=== PATIENT | female | born 1990 | race Caucasian/White ===

== ENCOUNTER 2024-11-06 10:36 | Emergency (ER) | payer BC ==
[2024-11-06 11:01] VITALS: TEMP 98.6
[2024-11-06] MEDS: ACETAMINOPHEN TAB 500 MG TAB PO STA (11:23)
[2024-11-06] MEDS: SODIUM CHLORIDE 0.9% 2,000 ML IV ONE (11:24)
[2024-11-06 11:33] LABS: Basophils % (A) 0 %; Eosinophils # (A) 0.1 k/uL (0-0.7); Eosinophils % (A) 1 %; HCT 35.1 % (34.0-46.0); HGB 12.5 gm/dL (11.4-16.0); Lymphocytes # (A) 0.6 k/uL (1.0-4.8); Lymphocytes % (A) 7 %; MCH 31.2 pg (25.0-35.0); MCHC 35.6 g/dL (31.0-37.0); MCV 87.5 fL (80.0-100.0); Mean Platelet Volume 7.8; Monocytes # (A) 0.5 k/uL (0-1.0); Monocytes % (A) 6 %; Neutrophils # (A) 7.1 k/uL (1.3-7.7); Neutrophils % (A) 83 %; Platelet Count 282 k/uL (150-450); RBC 4.01 m/uL (3.80-5.40); WBC 8.6 k/uL (3.8-10.6)
[2024-11-06 11:41] LABS: Appearance,Urine Clear (Clear); Bilirubin,Urine Negative (Negative); Blood,Urine Negative (Negative); Color,Urine Yellow; Glucose,Urine (UA) Negative (Negative); Ketones,Urine 3+ (Negative); Leukocyte Esterase,Urine Negative (Negative); Nitrite,Urine Negative (Negative); Protein,Urine Trace (Negative); Urobilinogen,Urine <2.0 mg/dL (<2.0)
[2024-11-06 11:44] LABS: African American GFR (CKD) >90 (>60 ml/min/1.73 sqM); Anion Gap 10 mmol/L; Blood Urea Nitrogen 3 mg/dL (7-17); Calcium 9.3 mg/dL (8.4-10.2); Carbon Dioxide 18 mmol/L (22-30); Chloride 104 mmol/L (98-107); Glucose 86 mg/dL (74-99); Non-African American GFR(CKD) >90 (>60 ml/min/1.73 sqM); Potassium 3.9 mmol/L (3.5-5.1); Sodium 132 mmol/L (137-145)
--- NOTE | 2024-11-06 12:22 | ED ---
Nausea/Vomiting/Diarrhea HPI - General Chief complaint: Nausea/Vomiting/Diarrhea Stated complaint: 31wks preg vomiting sore throat Time Seen by Provider: 11/06/24 10:55 Source: patient, RN notes reviewed Mode of arrival: ambulatory Limitations: no limitations - History of Present Illness Initial comments: 34-year-old female presents emergency department complaining nausea vomiting body aches fever. Patient states symptoms started last few days. Patient states that she has had some people at home sick. Patient is concerned that she may be dehydrated as she is 31 weeks . Patient denies any vaginal bleeding or abdominal pain she states she feels baby movement. - Related Data Previous Rx's Medication Instructions Recorded Ondansetron Odt [Zofran Odt] 4 mg PO Q8HR PRN #10 tab 11/06/24 Allergies Allergy/AdvReac Type Severity Reaction Status Date / Time sulfamethoxazole Allergy Unknown Verified 11/06/24 10:54 [From Bactrim] trimethoprim [From Bactrim] Allergy Unknown Verified 11/06/24 10:54 Review of Systems ROS Statement: Those systems with pertinent positive or pertinent negative responses have been documented in the HPI. ROS Other: All systems not noted in ROS Statement are negative. Past Medical History Past Surgical History: Section, Cholecystectomy, Tonsillectomy Additional Past Surgical History / Comment(s): ERCP. L thumb. hemorrhoidectomy Past Psychological History: Depression Smoking Status: Never smoker Past Alcohol Use History: None Reported Past Drug Use History: None Reported General Exam Limitations: no limitations General appearance: alert, in no apparent distress Head exam: Present: atraumatic, normocephalic, normal inspection Eye exam: Present: normal appearance, PERRL, EOMI. Absent: scleral icterus, conjunctival injection, periorbital swelling ENT exam: Present: normal exam, normal oropharynx, mucous membranes moist Neck exam: Present: normal inspection, full ROM. Absent: tenderness, meningismu s, lymphadenopathy Respiratory exam: Present: normal lung sounds bilaterally. Absent: respiratory distress, wheezes, rales, rhonchi, stridor Cardiovascular Exam: Present: normal rhythm, tachycardia, normal heart sounds. Absent: systolic murmur, diastolic murmur, rubs, gallop, clicks GI/Abdominal exam: Present: soft, normal bowel sounds. Absent: distended, tenderness, guarding, rebound, rigid Course Vital Signs 11/06/24 11/06/24 10:54 12:49 Temperature 98.6 F Pulse Rate 116 H 95 Respiratory 20 16 Rate Blood Pressure 131/81 99/60 O2 Sat by Pulse 98 97 Oximetry Medical Decision Making - Medical Decision Making Was pt. sent in by a medical professional or institution (DAREK Sharma, PINBALL MACHINE REPAIRER, urgent care, hospital, or retirement...) When possible be specific @ -No Did you speak to anyone other than the patient for history (EMS, parent, family, police, friend...)? What history was obtained from this source @ -No Did you review nursing and triage notes (agree or disagree)? Why? @ -I reviewed and agree with nursing and triage notes Were old charts reviewed (outside hosp., previous admission, EMS record, old EKG, old radiological studies, urgent care reports/EKG's, retirement records)? Report findings @ -No old charts were reviewed Differential Diagnosis (chest pain, altered mental status, abdominal pain women, abdominal pain men, vaginal bleeding, weakness, fever, dyspnea, syncope, headach e, dizziness, GI bleed, back pain, seizure, CVA, palpatations, mental health, musculoskeletal)? @ -Differential Fever: Pneumonia, viral URI, endocarditis, myocarditis, pericarditis, otitis, sinusitis , peritonsillar Abscess, retropharyngeal Abscess, epiglottitis, peritonitis, appendicitis, Roseann cystitis, diverticulitis, hepatitis, colitis, UTI, PID, TOA, pyelonephritis, prostatitis, epididymitis, meningitis, encephalitis, pulmonary embolism, CVA, thyroid storm, pancreatitis, adrenal crisis, cavernous sinus thrombosis, this is not meant to be an all-inclusive list. EKG interpreted by me (3pts min.). @None X-rays interpreted by me (1pt min.). @ -None done CT interpreted by me (1pt min.). @ -None done U/S interpreted by me (1pt. min.). @ -None done What testing was considered but not performed or refused? (CT, X-rays, U/S, labs)? Why? @ -None What meds were considered but not given or refused? Why? @ -None Did you discuss the management of the patient with other professionals (pro baer i.e. DAREK Sharma, PINBALL MACHINE REPAIRER, lab, RT, psych nurse, social worker clinical, truck mechanic, teacher, gift officer, case repairer)? Give summary @ -No Was smoking cessation discussed for >3mins.? @ -No Was critical care preformed (if so, how long)? @ -No Were there social determinants of health that impacted care today? How? (Homelessness, low income, unemployed, alcoholism, drug addiction, transportation, low edu. Level, literacy, decrease access to med. care, detention, rehab)? @ -No Was there de-escalation of care discussed even if they declined (Discuss DNR or withdrawal of care, Hospice)? DNR status @ -No What co-morbidities impacted this encounter? (DM, HTN, Smoking, COPD, CAD, Cancer, CVA, ARF, Chemo, Hep., AIDS, mental health diagnosis, sleep apnea, morbid obesity)? @ -None Was patient admitted / discharged? Hospital course, mention meds given and route, prescriptions, significant lab abnormalities, going to OR and other pertinent info. @ -Charge patient is well-hydrated, patient is influenza A positive. Patient discharged in stable condition return parens discussed. Undiagnosed new problem with uncertain prognosis? @ -No Drug Therapy requiring intensive monitoring for toxicity (Heparin, Nitro, Insul in, Cardizem)? @ -No Were any procedures done? @ -No Diagnosis/symptom? @ -Influenza A Acute, or Chronic, or Acute on Chronic? @ -Acute Uncomplicated (without systemic symptoms) or Complicated (systemic symptoms)? @ -Uncomplicated Side effects of treatment? @ -No Exacerbation, Progression, or Severe Exacerbation? @ -No Poses a threat to life or bodily function? How? (Chest pain, [place], [place], pneumonia, PE, COPD, DKA, ARF, appy, cholecystitis, CVA, Diverticulitis, Homicidal, Suicidal, threat to staff... and all critical care pts) @ -No - Lab Data Result diagrams: 11/06/24 11:27 11/06/24 11:27 Lab Results 11/06/24 11/06/24 11/06/24 Range/Units 11: 11: 11:27 WBC 8.6 (3.8-10.6) k/uL RBC 4.01 (3.80-5.40) m/uL Hgb 12.5 (11.4-16.0) gm/dL Hct 35.1 (34.0-46.0) % MCV 87.5 (80.0-100.0) fL MCH 31.2 (25.0-35.0) pg MCHC 35.6 (31.0-37.0) g/dL RDW 15.0 (11.5-15.5) % Plt Count 282 (150-450) k/uL MPV 7.8 Neutrophils % 83 % Lymphocytes % 7 % Monocytes % 6 % Eosinophils % 1 % Basophils % 0 % Neutrophils # 7.1 (1.3-7.7) k/uL Lymphocytes # 0.6 L (1.0-4.8) k/uL Monocytes # 0.5 (0-1.0) k/uL Eosinophils # 0.1 (0-0.7) k/uL Basophils # 0.0 (0-0.2) k/uL Sodium 132 L (137-145) mmol/L Potassium 3.9 (3.5-5.1) mmol/L Chloride 104 (98-107) mmol/L Carbon Dioxide 18 L (22-30) mmol/L Anion Gap 10 mmol/L BUN 3 L (7-17) mg/dL Creatinine 0.42 L (0.52-1.04) mg/dL Est GFR (CKD-EPI)AfAm >90 (>60 ml/min/1.73 sqM) Est GFR (CKD-EPI)NonAf >90 (>60 ml/min/1.73 sqM) Glucose 86 (74-99) mg/dL Calcium 9.3 (8.4-10.2) mg/dL Urine Color Yellow Urine Appearance Clear (Clear) Urine pH 6.0 (5.0-8.0) Ur Specific Jackson 1.020 (1.001-1.035) Urine Protein Trace H (Negative) Urine Glucose (UA) Negative (Negative) Urine Ketones 3+ H (Negative) Urine Blood Negative (Negative) Urine Nitrite Negative (Negative) Urine Bilirubin Negative (Negative) Urine Urobilinogen <2.0 (<2.0) mg/dL Ur Leukocyte Esterase Negative (Negative) Influenza Type A (PCR) (Not Detectd) Influenza Type B (PCR) (Not Detectd) RSV (PCR) (Not Detectd) SARS-CoV-2 (PCR) (Not Detectd) 11/06/24 Range/Units 11:27 WBC (3.8-10.6) k/uL RBC (3.80-5.40) m/uL Hgb (11.4-16.0) gm/dL Hct (34.0-46.0) % MCV (80.0-100.0) fL MCH (25.0-35.0) pg MCHC (31.0-37.0) g/dL RDW (11.5-15.5) % Plt Count (150-450) k/uL MPV Neutrophils % % Lymphocytes % % Monocytes % % Eosinophils % % Basophils % % Neutrophils # (1.3-7.7) k/uL Lymphocytes # (1.0-4.8) k/uL Monocytes # (0-1.0) k/uL Eosinophils # (0-0.7) k/uL Basophils # (0-0.2) k/uL Sodium (137-145) mmol/L Potassium (3.5-5.1) mmol/L Chloride (98-107) mmol/L Carbon Dioxide (22-30) mmol/L Anion Gap mmol/L BUN (7-17) mg/dL Creatinine (0.52-1.04) mg/dL Est GFR (CKD-EPI)AfAm (>60 ml/min/1.73 sqM) Est GFR (CKD-EPI)NonAf (>60 ml/min/1.73 sqM) Glucose (74-99) mg/dL Calcium (8.4-10.2) mg/dL Urine Color Urine Appearance (Clear) Urine pH (5.0-8.0) Ur Specific Jackson (1.001-1.035) Urine Protein (Negative) Urine Glucose (UA) (Negative) Urine Ketones (Negative) Urine Blood (Negative) Urine Nitrite (Negative) Urine Bilirubin (Negative) Urine Urobilinogen (<2.0) mg/dL Ur Leukocyte Esterase (Negative) Influenza Type A (PCR) Detected A (Not Detectd) Influenza Type B (PCR) Not Detected (Not Detectd) RSV (PCR) Not Detected (Not Detectd) SARS-CoV-2 (PCR) Not Detected (Not Detectd) Disposition Clinical Impression: Influenza A, Nausea & vomiting Disposition: HOME SELF-CARE Condition: Stable Instructions (If sedation given, give patient instructions): Influenza (ED) Additional Instructions: Please return to the Emergency Department if symptoms worsen or any other concerns. Prescriptions: Ondansetron Odt [Zofran Odt] 4 mg PO Q8HR PRN #10 tab PRN Reason: Nausea Is patient prescribed a controlled substance at d/c from ED?: No Referrals: Conrad Chacko MD [Primary Care Provider] - 1-2 days Time of Disposition: 12:22
[2024-11-06 12:50] VITALS: BP 99/60; PULSE 95; RESP 16
== END 2024-11-06 12:50 | disposition home or self-care (01) ==
LOC: EC 10:36
DX: O21.2 Late vomiting of pregnancy (principal); O99.513 Diseases of the respiratory system complicating pregnancy, third trimester; J10.1 Influenza due to other identified influenza virus with other respiratory manifestations; Z88.2 Allergy status to sulfonamides; Z3A.31 31 weeks gestation of pregnancy
CPT/HCPCS: 36415; 80048; 81003; 85025; 87636; 96360; 99284

== ENCOUNTER 2024-12-20 10:00 | Inpatient (IN) | payer BC ==
[2024-12-20 17:02] LABS: Basophils % (A) 0 %; Eosinophils % (A) 0 %; HCT 37.8 % (34.0-46.0); HGB 12.1 gm/dL (11.4-16.0); Lymphocytes # (A) 1.4 k/uL (1.0-4.8); Lymphocytes % (A) 19 %; MCH 28.1 pg (25.0-35.0); MCV 87.6 fL (80.0-100.0); Mean Platelet Volume 9.1; Monocytes # (A) 0.4 k/uL (0-1.0); Monocytes % (A) 6 %; Neutrophils # (A) 5.3 k/uL (1.3-7.7); Neutrophils % (A) 72 %; Platelet Count 335 k/uL (150-450); RBC 4.31 m/uL (3.80-5.40); RDW 13.7 % (11.5-15.5); WBC 7.3 k/uL (3.8-10.6)
[2024-12-20] MEDS ORDERED: LABETALOL 5 MG/ML VIAL MDV IVP PRN (17:05)
[2024-12-20 17:15] LABS: ALT 27 U/L (4-34); AST 33 U/L (14-36); African American GFR (CKD) >90 (>60 ml/min/1.73 sqM); Blood Urea Nitrogen 10 mg/dL (7-17); LDH 210 U/L (120-246); Non-African American GFR(CKD) >90 (>60 ml/min/1.73 sqM); Uric Acid 4.6 mg/dL (3.7-7.4)
[2024-12-20] MEDS: LABETALOL 5 MG/ML VIAL MDV IVP PRN ×2 (17:17→17:34)
[2024-12-20 18:12] LABS: Creatinine,Urine Random 164.9 mg/dL; INR 0.9 (<1.2); Protein/Creatinine Ratio,Urine 1.195
[2024-12-20 18:14] LABS: Appearance,Urine Clear (Clear); Bacteria,Urine Rare /hpf; Bilirubin,Urine Negative (Negative); Blood,Urine Negative (Negative); Color,Urine Yellow; Glucose,Urine (UA) Negative (Negative); Ketones,Urine Negative (Negative); Leukocyte Esterase,Urine Negative (Negative); Mucus,Urine Occasional /hpf; Nitrite,Urine Negative (Negative); PH, Urine 6.5 (5.0-8.0); Protein,Urine 2+ (Negative); RBC,Urine 1 /hpf (0-5); Squamous Epithelial Cell,Urine 1 /hpf (0-4); Urobilinogen,Urine <2.0 mg/dL (<2.0); WBC,Urine 4 /hpf (0-5)
[2024-12-20] MEDS: hydrALAZINE HCL 20 MG/ML 1 ML VIAL IVP PRN (18:15)
[2024-12-20] MEDS ORDERED: OXYTOCIN 10 UNIT/ML 1 ML VIAL IM PRN (18:52)
[2024-12-20] MEDS ORDERED: CARBOPROST TROMETHAMINE 250 MCG/ML 1 ML AMP IM PRN (18:52)
[2024-12-20] MEDS ORDERED: TRANEXAMIC 1,000 MG/100ML-NACL 1,000 MG in EMPTY BAG 1 BAG IV PRN (18:52)
[2024-12-20] MEDS ORDERED: miSOPROStoL 200 MCG TAB PO PRN (18:52)
[2024-12-20] MEDS ORDERED: METHYLERGONOVINE 0.2 MG/ML 1 ML AMP IM PRN (18:52)
[2024-12-20] MEDS: CITRIC ACID-SODIUM CITRATE 15 ML CUP PO ONE (19:00)
[2024-12-20] MEDS ORDERED: OXYTOCIN 10 UNIT/ML 1 ML VIAL ONE (19:15)
[2024-12-20] MEDS ORDERED: MORPHINE SULFATE (PF) 0.3 MG/0.3 ML SYR ONE (19:15)
[2024-12-20] MEDS ORDERED: PHENYLEPHRINE 10 MG/ML VIAL ONE (19:15)
[2024-12-20] MEDS ORDERED: DEXAMETHASONE SOD PHOSPHATE 4 MG/ML 1 ML VIAL ONE (19:15)
[2024-12-20] MEDS ORDERED: KETOROLAC 15 MG/ML 1 ML VIAL ONE (19:15)
[2024-12-20] MEDS ORDERED: NALBUPHINE (ANES) 10 MG/ML - 1 ML AMP ONE (19:15)
[2024-12-20] MEDS ORDERED: ONDANSETRON 4 MG/2 ML VIAL ONE (19:15)
--- NOTE | 2024-12-20 19:17 | P.HPOB ---
History of Present Illness H&P Date: 12/20/24 Chief Complaint: 36-6/7 weeks, preeclampsia with severe features The patient is a 34-year-old 3 para 2-0-0-2 admitted at 36-6/7 weeks as established by dating parameters at a previous practice where she began her care. She is admitted today after being seen in the office with significantly elevated blood pressures and a known history of -induced hypertension in previous pregnancies. She also has a history of 2 previous sections and has requested a repeat with intraoperative bilateral salpingectomy for permanent sterilization. On labor delivery, she had continued significantly elevated blood pressures in the range of 160-170/100-110. She received labetalol and ascending doses up to 40 mg with minimal change in her blood pressure. She did have a slight decrease in blood pressure with the addition of Apresoline. She reports that she has recently had occasional scotomata but no significant headache and no evidence of significant edema. She also has a known diagnosis found this week of cholestasis of . The original intention was to deliver her at 37 weeks or shortly thereafter, but today she has been diagnosed with severe preeclampsia and the decision has been made to proceed with delivery. Obstetrical history: 3 para 2-0-0-2 with 2 term sections with apparent complications of -induced hypertension in those pregnancies as well. Current statistics are listed in history of present illness. EDC of 01/07/2025 was established by last menstrual period and confirmed by second trimester ultrasound. Laboratory workup demonstrates a blood type of O+ with a negative antibody screen. Rubella status is immune. The remainder of the laboratory workup is within normal limits. 1 hour Glucola was normal and group B strep status is negative. Gynecologic history: Unremarkable with no history of any infections to include STDs. Review of Systems Review of systems is confined to history of present illness. Past Medical History Past Medical History: No Reported History History of Any Multi-Drug Resistant Organisms: None Reported Past Surgical History: Section, Cholecystectomy, Tonsillectomy Additional Past Surgical History / Comment(s): ERCP. L thumb. hemorrhoidectomy. back surgery Past Anesthesia/Blood Transfusion Reactions: No Reported Reaction Past Psychological History: Anxiety, Depression Smoking Status: Never smoker Past Alcohol Use History: None Reported Past Drug Use History: None Reported Medications and Allergies Home Medications Medication Instructions Recorded Confirmed Type Labetalol [Trandate] 100 mg PO DAILY 12/20/24 12/20/24 History Sertraline [Zoloft] 50 mg PO DAILY 12/20/24 12/20/24 History traZODone HCL [Desyrel] 50 mg PO DAILY 12/20/24 12/20/24 History ursodioL [Ursodiol] 200 mg PO DAILY 12/20/24 12/20/24 History Allergies Allergy/AdvReac Type Severity Reaction Status Date / Time sulfamethoxazole Allergy Unknown Verified 12/20/24 16:25 [From Bactrim] trimethoprim [From Bactrim] Allergy Unknown Verified 12/20/24 16:25 Exam Vital Signs Temp Pulse Resp BP Pulse Ox 12/20/24 17:24 98.2 F 90 18 201/122 98 Intake and Output 12/20/24 12/20/24 12/20/24 06:59 14:59 22:59 Other: Weight 75.75 kg General, this is a well-developed, well-nourished white female in no acute distress. Her heart has a regular rhythm and rate without murmur. Her lungs are clear to auscultation bilaterally in all mar[place]. Her abdomen is gravid, nondistended, has normal active bowel sounds, is soft, nontender, and without any palpable masses aside from the uterine fundus. Her extremities are without any cyanosis, clubbing, or significant edema and are nontender to palpation bilaterally. Digital cervical examination is deferred. Results Result Diagrams: 12/20/24 16:44 12/20/24 16:44 Abnormal Lab Results - Last 24 Hours (Table) 12/20/24 Range/Units 16:44 Urine Protein 2+ H (Negative) Urine Bacteria Rare H (None) /hpf Urine Mucus Occasional H (None) /hpf Assessment and Plan (1) Previous section Current Visit: Yes Status: Acute Code(s): Z98.891 - HISTORY OF UTERINE SCAR FROM PREVIOUS SURGERY SNOMED Code(s): 227698715 (2) Family planning Current Visit: Yes Status: Acute Code(s): Z30.09 - ENCOUNTER FOR OTH GENERAL CNSL AND ADVICE ON CONTRACEPTION SNOMED Code(s): 530110828 (3) Severe pre-eclampsia Current Visit: Yes Status: Acute Code(s): O14.10 - SEVERE PRE-ECLAMPSIA, UNSPECIFIED TRIMESTER SNOMED Code(s): 38221255 Plan: Laboratory workup has been essentially within normal limits but the diagnosis is made secondary to the significantly elevated blood pressures as well as a protein to creatinine ratio that is significantly elevated. She also has a known diagnosis of cholestasis making delivery indicated as well. She has requested intraoperative bilateral salpingectomy which she has confirmed tonight. We will proceed to the operating room for repeat low-transverse section with intraoperative bilateral salpingectomy. She will have m agnesium sulfate intravenously for 24 hours thereafter and we will likely consult internal medicine to help control her blood pressures should they continue to remain significantly labile.
[2024-12-20] MEDS ORDERED: diphenhydrAMINE 50 MG/ML 1 ML VIAL IVP PRN (20:08)
[2024-12-20] MEDS ORDERED: ZOLPIDEM 5 MG TAB PO PRN (20:08)
[2024-12-20] MEDS ORDERED: LANOLIN CREAM 1 GM TUBE TOPICAL PRN (20:08)
[2024-12-20] MEDS ORDERED: diphenhydrAMINE 25 MG CAP PO PRN (20:08)
[2024-12-20] MEDS ORDERED: ONDANSETRON 4 MG/2 ML VIAL IVP PRN (20:08)
[2024-12-20] MEDS ORDERED: NALOXONE 0.4 MG/ML 1 ML VIAL IV PRN ×2 (20:08→21:21)
[2024-12-20] MEDS ORDERED: METOCLOPRAMIDE 5 MG/ML 2 ML VIAL IVP PRN (20:08)
[2024-12-20] MEDS ORDERED: OXYTOCIN 30 UNITS/500 ML NS 30 UNIT in SALINE 1 500ML.BAG IV SCH (20:15)
--- NOTE | 2024-12-20 20:20 | P.OP ---
Date of Procedure: 12/20/24 Preoperative Diagnosis: 1. 36-6/7 weeks, preeclampsia with severe features #2. Previous section x 2 #3. Undesired fertility #4. Cholestasis of Postoperative Diagnosis: Same Procedure(s) Performed: #1. Repeat low-transverse section #2. Intraoperative bilateral salpingectomy Anesthesia: spinal Surgeon: Tre De La Vega Shank Breaker #1: Ml Noriega Estimated Blood Loss (ml): 350 IV fluids (ml): 1,000 Urine output (ml): 100 Pathology: other (Placenta, bilateral fallopian tubes) Condition: stable Disposition: floor Operative Findings: See history and physical for preoperative details. The patient was taken to the operating room where she was delivered of a viable 6 pound 9 ounce baby boy with Apgars of 3 at 1 minute, 8 at 5 minutes, and 9 at 10 minutes in the occiput transverse position. The placenta was delivered manually, intact, grossly normal with a grossly normal three-vessel cord. The uterus, tubes, and ovaries were entirely normal to inspection with the exception of the bladder being scarred fairly high on the lower uterine segment. The bilateral fallopian tubes were removed and sent in a single specimen to pathology. Description of Procedure: The patient was prepped and draped in usual fashion after spinal anesthesia was administered by the anesthesiologist. A Pfannenstiel incision was made through her pre-existing scar and extended into the abdominal cavity without difficulty. The bladder peritoneum was noted to be scarred fairly high and was elevated, incised, and reflected distally. A 2 cm incision was made in the transverse plane of the lower uterine segment to enter the uterus at which time clear fluid was noted. The incision was extended in both directions using the bandage scissors. The head was delivered up and through the incision where the nose and mouth were thoroughly suctioned. A loose nuchal cord was reduced on the field. The remainder of the infant was delivered onto the field and the cord doubly clamped, cut, and the passed resuscitative measures with weight and Apgars as noted above. cord blood was collected. A segment of cord was doubly clamped, cut, and set aside should cord gases become necessary. The placenta was delivered manually and intact as noted above. The uterus was exteriorized and the anterior cavity uterus swept of any remaining placental or membranous fragments. The margins of the uterine incision were grasped with Huffman clamps and the incision closed in a single running locking stitch of 0 chromic catgut from margin to margin. Hemostasis appeared to be excellent. The posterior cul-de-sac was suctioned with a guard. After reaffirming with the patient her desire for bilateral salpingectomy, the right fallopian tube was rosenda vated and removed from its underlying structures with a LigaSure device to the cornual insert. A similar operation was carried out on the left side without difficulty. There was no ongoing bleeding from the surgical sites. The uterus was replaced within the abdominal cavity and the uterine incision examined and found to be hemostatic. The parietal peritoneum was loosely reapproximated after removing any blood, clot, or fluid from the gutters bilaterally. The layer of muscles were examined and made hemostatic with the Bovie. The fascia was closed with a single running stitch of 0 Vicryl from margin to margin. The subcutaneous tissues were made hemostatic with the Bovie and then reapproximated with a running stitch of 3-0 plain catgut. The skin was reapproximated with a running subcuticular stitch of 4-0 Vicryl from margin to margin followed by half-inch Steri-Strips placed with Mastisol. Estimated blood loss for the case was 350 mL. There were no complications. All sponge, instrument, and needle counts were correct. The patient tolerated the procedure well and proceeded to the recovery room in stable condition. Both mother and infant are resting comfortably in recovery. Her urine was seen throughout the case and blood pressures remained in the stable range throughout.
[2024-12-20] MEDS: MAGNESIUM SULFATE-WATER PMX 4 GM in WATER FOR INJECTION 1 100ML.BAG IVPB ONE (20:30)
[2024-12-20] MEDS: LACTATED RINGERS 1,000 ML IV SCH (20:43)
[2024-12-20] MEDS: MAGNESIUM SULFATE-WATER PMX 20 GM in WATER FOR INJECTION 1 500ML.BAG IV SCH (20:58)
[2024-12-20] MEDS: diphenhydrAMINE 50 MG/ML 1 ML VIAL IVP PRN (23:27)
[2024-12-20] MEDS: ACETAMINOPHEN TAB 500 MG TAB PO SCH (23:39)
[2024-12-21] MEDS: traZODone HCL 50 MG TAB PO SCH (00:36)
[2024-12-21] MEDS: SERTRALINE 50 MG TAB PO SCH (00:36)
[2024-12-21] MEDS: KETOROLAC 15 MG/ML 1 ML VIAL IVP PRN (02:19)
--- NOTE | 2024-12-21 06:28 | P.PN ---
Progress Note - Text Progress Note Date: 12/21/24 Patient was seen and examined side. Received intrathecal morphine 300 mcg. For postop pain control as per surgeon request. Today postop day 1 -status post C- section, and tubal ligation. Today complaining her pain levels 3-4 out of 10 in severity. Denied any weakness, moving all extremities without difficulty. moderate itching all over the body. Physical exam: Vitals : stable vitals, afebrile Assessment and plan: S/p postop day 1 - Continue oral pain medications as needed as per primary care. Please contact anesthesia as needed.
[2024-12-21 07:32] LABS: Anisocytosis Slight; Basophils % (A) 0 %; Eosinophils % (A) 0 %; HCT 29.1 % (34.0-46.0); Hypochromasia Slight; Lymphocytes # (A) 1.1 k/uL (1.0-4.8); Lymphocytes % (A) 10 %; MCH 30.3 pg (25.0-35.0); MCHC 33.2 g/dL (31.0-37.0); MCV 91.3 fL (80.0-100.0); Mean Platelet Volume 9.2; Monocytes # (A) 0.4 k/uL (0-1.0); Monocytes % (A) 4 %; Neutrophils # (A) 9.1 k/uL (1.3-7.7); Neutrophils % (A) 85 %; Platelet Count 312 k/uL (150-450); RBC 3.19 m/uL (3.80-5.40); WBC 10.7 k/uL (3.8-10.6)
[2024-12-21] MEDS: SENNOSIDES-DOCUSATE SODIUM 1 EACH TAB PO SCH (07:43)
[2024-12-21 07:44] LABS: HGB 9.7 gm/dL (11.4-16.0)
[2024-12-21] MEDS ORDERED: ACETAMINOPHEN TAB 500 MG TAB PO SCH (08:00)
--- NOTE | 2024-12-21 08:27 | P.PNOBGPC ---
Subjective - Subjective Interval history: Reports tolerating magnesium but feels tired and lethargic. Patient reports: Reports appetite normal, Reports voiding normally, Reports pain well controlled [employer]: doing well, in NICU (On supplemental oxygen with antibiotic p rophylaxis) Objective - Vital Signs Latest vital signs: Vital Signs Temp Pulse Resp BP Pulse Ox 12/21/24 06:20 78 16 122/74 99 12/21/24 05:20 82 16 113/73 98 12/21/24 04:20 78 16 113/68 99 12/21/24 03:20 82 16 107/65 96 12/21/24 02:20 82 16 108/69 98 12/21/24 01:20 85 16 120/75 98 12/21/24 00:20 84 16 135/84 12/20/24 23:20 86 16 152/87 12/20/24 22:21 16 98 12/20/24 22:10 97.4 F L 83 16 136/85 98 12/20/24 21:55 83 16 135/84 99 12/20/24 21:40 83 16 138/86 97 12/20/24 21:25 83 16 151/93 98 12/20/24 21:10 82 16 147/89 98 12/20/24 20:55 80 16 135/84 96 12/20/24 20:40 82 16 139/85 97 12/20/24 20:25 84 16 140/85 97 12/20/24 20:10 97.5 F L 84 16 136/83 97 12/20/24 17:24 98.2 F 90 18 201/122 98 Intake and Output 12/20/24 12/21/24 12/21/24 22:59 06:59 14:59 Intake Total 500 Output Total 585 350 200 Balance -585 150 -200 Intake: Intake, IV Titration 500 Amount Magnesium Sulfate-Water 500 Pmx 20 gm In Water For Injection 1 500ml.bag @ 2 GM/HR 50 mls/hr IV .Q10H [facility] Rx#:[id number] Output: Urine 100 350 200 Output, Quantitative 485 Blood Loss Other: Voiding Method Indwelling Catheter Indwelling Catheter Weight 75.75 kg - Exam Extremities: Present: normal Abdomen: Present: normal appearance, soft. Absent: distention, tenderness Incision: Present: normal, dry, intact Uterus: Present: normal, firm (Fundus is tonic and appropriately tender below the umbilicus.) - Labs Labs: Abnormal Lab Results - Last 24 Hours (Table) 12/20/24 12/21/24 Range/Units 16:44 07:05 WBC 10.7 H (3.8-10.6) k/uL RBC 3.19 L (3.80-5.40) m/uL Hgb 9.7 L D (11.4-16.0) gm/dL Hct 29.1 L (34.0-46.0) % RDW 18.0 H (11.5-15.5) % Neutrophils # 9.1 H (1.3-7.7) k/uL Urine Protein 2+ H (Negative) Urine Bacteria Rare H (None) /hpf Urine Mucus Occasional H (None) /hpf Assessment and Plan (1) Previous section Current Visit: Yes Status: Acute Code(s): Z98.891 - HISTORY OF UTERINE SCAR FROM PREVIOUS SURGERY SNOMED Code(s): 912947907 (2) Family planning Current Visit: Yes Status: Acute Code(s): Z30.09 - ENCOUNTER FOR [facility] CNSL AND ADVICE ON CONTRACEPTION SNOMED Code(s): 253942585 (3) Severe pre-eclampsia Current Visit: Yes Status: Acute Code(s): O14.10 - SEVERE PRE-ECLAMPSIA, UNSPECIFIED TRIMESTER SNOMED Code(s): 17879790 (4) S/P section Current Visit: Yes Status: Acute Code(s): Z98.891 - HISTORY OF UTERINE SCAR FROM PREVIOUS SURGERY SNOMED Code(s): 344795138 Plan: Magnesium will be continued for a total of 24 hours at which time it will be withdrawn. Blood pressures have been entirely normal overnight with no need for intervention with any antihypertensives. The catheter remains in place at this time to manage ins and outs. We will attempt to get the patient up later today to begin ambulation and hopefully be able to remove the catheter to allow the patient to void on her own. Continue with close observation regarding vital signs and, specifically, blood pressure.
[2024-12-21] MEDS ORDERED: traZODone HCL 50 MG TAB PO SCH (09:00)
[2024-12-21] MEDS ORDERED: SERTRALINE 50 MG TAB PO SCH (09:00)
[2024-12-21] MEDS: diphenhydrAMINE 50 MG CAP PO PRN (16:03)
[2024-12-21] MEDS: IBUPROFEN 800 MG TAB PO SCH (19:29)
[2024-12-22] MEDS ORDERED: IBUPROFEN 800 MG TAB PO SCH
--- NOTE | 2024-12-22 11:35 | P.PNOBGPC ---
Subjective - Subjective Patient reports: Reports appetite normal, Reports voiding normally, Reports pain well controlled, Reports ambulating normally : doing well, in NICU (Continues to require supplemental oxygen, now weaning. Additionally diagnosed with probable pneumonia requiring antibiotics for 7 days.) Objective - Vital Signs Latest vital signs: Vital Signs Temp Pulse Resp BP Pulse Ox 12/22/24 10:00 16 153/91 99 12/22/24 08:00 98.4 F 92 16 157/98 98 12/22/24 06:00 16 12/22/24 04:00 16 12/22/24 02:00 16 98 12/22/24 00:00 98.2 F 85 16 128/70 98 12/21/24 22:00 16 12/21/24 20:00 16 12/21/24 17:48 16 98 12/21/24 15:49 97.3 F L 72 16 123/74 97 12/21/24 15:40 16 12/21/24 14:00 72 16 120/65 98 12/21/24 12:00 16 Intake and Output 12/21/24 12/22/24 12/22/24 22:59 06:59 14:59 Intake Total 600 0 Output Total 950 Balance -350 0 Intake: Oral 600 0 Output: Urine 950 Other: # Voids 1 1 - Exam Extremities: Present: normal Abdomen: Present: normal appearance, soft. Absent: distention, tenderness Incision: Present: normal, dry, intact Uterus: Present: normal, firm (The uterine fundus is tonic and appropriately ten mendy below the umbilicus.) Assessment and Plan (1) Previous section Current Visit: Yes Status: Acute Code(s): Z98.891 - HISTORY OF UTERINE SCAR FROM PREVIOUS SURGERY SNOMED Code(s): 770048629 (2) Family planning Current Visit: Yes Status: Acute Code(s): Z30.09 - ENCOUNTER FOR OTH GENERAL CNSL AND ADVICE ON CONTRACEPTION SNOMED Code(s): 339694895 (3) Severe pre-eclampsia Current Visit: Yes Status: Acute Code(s): O14.10 - SEVERE PRE-ECLAMPSIA, UNSPECIFIED TRIMESTER SNOMED Code(s): 16724505 (4) S/P section Current Visit: Yes Status: Acute Code(s): Z98.891 - HISTORY OF UTERINE SCAR FROM PREVIOUS SURGERY SNOMED Code(s): 215429047 Plan: Continue routine and postoperative care. Blood pressure today is somewhat elevated and I have opted to begin Procardia XL 30 mg daily. We will continue to follow her blood pressures carefully. I have encouraged her to ambulate in the hallways routinely. She is otherwise performing all activities of daily living.
[2024-12-22] MEDS: NIFEdipine XL 30 MG TAB.ER.24 PO SCH (12:08)
[2024-12-23 08:31] VITALS: RESP 16
--- NOTE | 2024-12-23 09:28 | P.PNOBGPC ---
Subjective - Subjective Patient reports: Reports appetite normal, Reports voiding normally, Reports pain well controlled, Reports ambulating normally : doing well, in NICU (Off of supplemental oxygen, will continue to receive a 7-day course of antibiotics for possible pneumonia.) Objective - Vital Signs Latest vital signs: Vital Signs Temp Pulse Resp BP Pulse Ox 12/23/24 08:54 159/104 12/23/24 08:00 97.9 F 89 16 157/102 97 12/22/24 23:52 98.2 F 109 H 17 147/81 97 12/22/24 16:00 98.2 F 96 16 159/88 98 12/22/24 10:00 16 153/91 99 Intake and Output 12/22/24 12/23/24 12/23/24 22:59 06:59 14:59 Intake Total 600 Balance 600 Intake: Oral 600 Other: # Voids 1 1 1 - Exam Extremities: Present: normal Abdomen: Present: normal appearance, soft. Absent: distention, tenderness Incision: Present: normal, dry, intact Uterus: Present: normal, firm Assessment and Plan (1) Previous section Current Visit: Yes Status: Acute Code(s): Z98.891 - HISTORY OF UTERINE SCAR FROM PREVIOUS SURGERY SNOMED Code(s): 775580161 (2) Family planning Current Visit: Yes Status: Acute Code(s): Z30.09 - ENCOUNTER FOR OT GENERAL CNSL AND ADVICE ON CONTRACEPTION SNOMED Code(s): 526820087 (3) Severe pre-eclampsia Current Visit: Yes Status: Acute Code(s): O14.10 - SEVERE PRE-ECLAMPSIA, UNSPECIFIED TRIMESTER SNOMED Code(s): 02364488 (4) S/P section Current Visit: Yes Status: Acute Code(s): Z98.891 - HISTORY OF UTERINE SCAR FROM PREVIOUS SURGERY SNOMED Code(s): 474326145 Plan: Blood pressures remain moderately elevated on Procardia XL 30 mg daily. I will add another dose of 30 mg this morning and increase her daily dose to 60 mg. We will continue to follow her blood pressures closely. She has no other signs or symptoms of ongoing issues of preeclampsia. She will likely remain in the hospital until day for or perhaps longer pending control of her blood pressures. The infant remains in the nursery for a 7-day course of antibiotics.
[2024-12-23] MEDS: NIFEdipine XL 30 MG TAB.ER.24 PO STA (09:49)
[2024-12-24 07:49] VITALS: PULSE 102; TEMP 97.8
--- NOTE | 2024-12-24 08:02 | P.DS ---
Providers Date of admission: 12/20/24 16:13 Expected date of discharge: 12/24/24 Attending physician: Tre De La Vega Primary care physician: Conrad Boi - Discharge Diagnosis(es) (1) Previous section Current Visit: Yes Status: Acute (2) Family planning Current Visit: Yes Status: Acute (3) Severe pre-eclampsia Current Visit: Yes Status: Acute (4) S/P section Current Visit: Yes Status: Acute Hospital Course: The patient is a 34-year-old 3 para 2-0-0-2 admitted at 36-6/7 weeks by good dating parameters. She is admitted after having been seen in the office at which time she had a significantly elevated blood pressure on multiple occasions. She has known history of -induced hypertension with previous pregnancies also history of 2 previous sections and had requested repeat with intraoperative bilateral salpingectomy for permanent sterilization. She was sent to labor and delivery where she continued to have significantly high blood pressure despite being placed on labetalol IV management protocol. Her blood pressures continued to be elevated though not a significantly so with the use of Apresoline. She additionally carries a diagnosis of cholestasis of . Given all of these significant findings and now the diagnosis of preeclampsia with severe features based upon blood pressure, the decision was made to proceed with delivery directly. She was taken to the operating room where she underwent repeat low-transverse section with intraoperative bilateral salpingectomy. She was delivered of a viable 6 pound 9 ounce baby boy with Apgars of 3 at 1 minute, 6 at 5 minutes, and 8 at 10 minutes. She was placed on magnesium sulfate seizure prophylaxis for approximately 18 to 20 hours postoperatively during which time her blood pressures remained completely normal. She had no other signs or symptoms of preeclampsia aside from her blood pressure. Her postoperative course has been unremarkable though she has required intervention with antihypertensives. She did not tolerate oral labetalol while and has been placed on Procardia XL, ultimately landing on 60 mg daily which has kept her blood pressures in a reasonable range. Otherwise her vitals were stable and her temperature was afebrile throughout. She was deemed stable for discharge on postoperative and day #4 and was discharged home to follow-up in the office in 2 weeks for an incision check in 6 weeks routinely. Discharge instructions included calling for any significantly increased bleeding or foul-smelling lochia, significantly increased fever or abdominal pain, perineal complaints, breast complaints, incisional complaints, or anything else that concerned her. She was additionally instructed to have nothing in the vagina for at least 6 weeks time to include intercourse. She was instructed to do no heavy lifting over the same period of time. She was lastly instructed to do no driving until off of all pain medications or 2 weeks time, whichever came first. She understood her instructions and agrees to follow-up as noted above. Discharge medications included continued vitamins as she has opted to breast-feed. She was otherwise to use [id number] analgesic pain medications as needed. She was provided prescriptions for oxycodone 5 mg, 1-2 p.o. every 6 hours as needed pain, #20 dispensed with no refills. She also was given a prescription for Procardia XL 60 mg 1 p.o. daily, #90 dispensed with 1 refill. Maternal blood type is O+ and rubella status is immune. Discharge hemoglobin and hematocrit were 9.7 and 29.1 respectively. Procedures: #1. Repeat low-transverse section #2. Intraoperative bilateral salp ingectomy #3. Magnesium sulfate prophylaxis #4. Antihypertensive therapy Patient Condition at Discharge: Stable Plan - Discharge Summary New Discharge Prescriptions: No Action Sertraline [Zoloft] 50 mg PO DAILY ursodioL [Ursodiol] 200 mg PO DAILY traZODone HCL [Desyrel] 50 mg PO DAILY Labetalol [Trandate] 100 mg PO DAILY Discharge Medication List Labetalol [Trandate] 100 mg PO DAILY 12/20/24 [History] Sertraline [Zoloft] 50 mg PO DAILY 12/20/24 [History] traZODone HCL [Desyrel] 50 mg PO DAILY 12/20/24 [History] ursodioL [Ursodiol] 200 mg PO DAILY 12/20/24 [History] Follow up Appointment(s)/Referral(s): Tre De La Vega MD [STAFF PHYSICIAN] - 01/04/25 11:15 am (Post 02-07-2025 at 11:15am) Discharge Disposition: HOME SELF-CARE
[2024-12-24 12:58] VITALS: BP 148/88
[2024-12-24] MEDS: SIMETHICONE 80 MG CHEWABLE PO PRN (15:51)
== END 2024-12-24 16:12 | disposition home or self-care (01) | DRG 785 ==
LOC: 4FBP 16:13
PROVIDERS: ADMIT Family Medicine; ATTEND Obstetrics & Gynecology
PROC: 10D00Z1 Extraction of Products of Conception, Low, Open Approach (ICD-10-PCS; principal; 2024-12-20 19:00)
PROC: 0UB70ZZ Excision of Bilateral Fallopian Tubes, Open Approach (ICD-10-PCS; principal; 2024-12-20 19:00)
DX: O14.14 Severe pre-eclampsia complicating childbirth (principal); Z30.2 Encounter for sterilization; O26.643 Intrahepatic cholestasis of pregnancy, third trimester; K76.89 Other specified diseases of liver; O34.211 Maternal care for low transverse scar from previous cesarean delivery; O99.344 Other mental disorders complicating childbirth; F32.A Depression, unspecified; Z37.0 Single live birth; F41.9 Anxiety disorder, unspecified; E78.79 Other disorders of bile acid and cholesterol metabolism; Z88.2 Allergy status to sulfonamides; Z79.899 Other long term (current) drug therapy; Z3A.36 36 weeks gestation of pregnancy
CPT/HCPCS: 81001; 82565; 82570; 83615; 84156; 84450; 84460; 84520; 84550; 85025; 85610; 85730; 86850; 86900; 86901; 88302; 88307